=== PATIENT | female | born 1935 | race Caucasian/White ===

== ENCOUNTER 2018-03-07 04:58 | Inpatient (IN) ==
[2018-03-03 13:08] LABS: Appearance,Urine HAZY; Bacteria,Urine 0 /hpf (0); Bilirubin,Urine NEG (NEG); Color,Urine YELLOW; Glucose,Urine (UA) 50 mg/dL (NEG); Leukocyte Esterase,Urine 250 /uL (NEG); Mucus,Urine FEW /hpf (0); Protein,Urine NEG (NEG); Specific Gravity,Urine 1.026 (1.000-1.035); Urine Blood NEG mg/dL (<0.03); Urine Hyaline Cast 4 /lpf (0-2); Urine RBC 5 /hpf (0-1); Urine Squamous Epithelial Cell 2 /hpf (0-4); Urine WBC 12 /hpf (0-4); Urobilinogen,Urine NEG (NEG)
[2018-03-03 13:11] LABS: Basophils # (Auto) 0.1 K/mcL (0.0-0.3); Basophils % (Auto) 0.8 % (0.0-2.0); Eosinophils # (Auto) 0.3 K/mcL (0.0-0.7); Eosinophils % (Auto) 3.6 % (0.0-7.0); Granulocytes % (Auto) 59.9 % (38.0-78.0); Lymphocytes # (Auto) 2.1 K/mcL (1.5-4.8); Lymphocytes % (Auto) 27.7 % (15.5-49.0); Mean Cell Volume 94.3 fL (80.0-100.0); Mean Corpuscular HGB Conc 33.1 g/dL (31.0-36.0); Mean Corpuscular Hemoglobin 31.3 pg (26.0-34.0); Monocytes # (Auto) 0.6 K/mcL (0.1-0.9); Platelet Count 360 K/mcL (140-440); RBC 3.37 M/mcL (4.00-5.20); Red Cell Distribution Width 19.4 % (11.5-14.5)
[2018-03-03 13:34] LABS: ALT/SGPT 9 U/l (0-40); Albumin 4.6 gm/dL (3.2-5.2); Albumin/Globulin Ratio 1.9 (1.0-2.3); Alkaline Phosphatase 40 U/L (39-117); Blood Urea Nitrogen 26 mg/dl (8-23)
[2018-03-07] MEDS ORDERED: VANCOMYCIN 1,000 MG in 0.9 % SODIUM CHLORIDE 250 ML IV SCH (06:45)
[2018-03-07] MEDS ORDERED: CIPROFLOXACIN 400 MG/200 ML BAG IV ONE (07:00)
[2018-03-07] MEDS ORDERED: MIDAZOLAM 2 MG/2 ML VIAL IV ONE (07:35)
[2018-03-07] MEDS ORDERED: DEXAMETHASONE 10 MG/ML VIAL IV ONE (07:35)
[2018-03-07] MEDS ORDERED: ONDANSETRON 4 MG/2 ML VIAL IV ONE (07:35)
[2018-03-07] MEDS ORDERED: PHENYLEPHRINE 10 MG/ML VIAL IV ONE (07:35)
[2018-03-07] MEDS ORDERED: fentaNYL 250 MCG/5 ML VIAL IV ONE (07:35)
[2018-03-07] MEDS ORDERED: PROMETHAZINE 25 MG/ML VIAL IV ONE (07:35)
[2018-03-07] MEDS ORDERED: KETAMINE 100 MG/ML ML IV ONE (07:35)
[2018-03-07] MEDS ORDERED: SUCCINYLCHOLINE 20 MG/ML ML IV ONE (07:35)
[2018-03-07] MEDS ORDERED: LIDOCAINE HCL/PF 100 MG/5 ML SYRINGE IV ONE (07:35)
[2018-03-07] MEDS ORDERED: PROPOFOL 200 MG/20 ML VIAL IV ONE (07:35)
[2018-03-07] MEDS ORDERED: THROMBIN (BOVINE) 5,000 UNIT VIAL TOPICAL ONE (08:23)
[2018-03-07] MEDS ORDERED: ACETAMINOPHEN 1,000 MG/100 ML BOTTLE IV ONE (10:25)
[2018-03-07] MEDS ORDERED: KETOROLAC 15 MG/ML VIAL IV PRN (10:25)
[2018-03-07] MEDS ORDERED: HYDROmorphone 2 MG/ML VIAL IV PRN (10:25)
[2018-03-07] MEDS ORDERED: ONDANSETRON 4 MG/2 ML VIAL IV PRN (10:25)
[2018-03-07] MEDS ORDERED: IPRATROPIUM/ALBUTEROL 3 ML AMPUL.NEB NEB PRN (10:25)
[2018-03-07] MEDS ORDERED: fentaNYL 100 MCG/2 ML VIAL IV PRN (10:25)
[2018-03-07] MEDS ORDERED: METHOCARBAMOL 1,000 MG/10 ML VIAL IV PRN (10:25)
[2018-03-07] MEDS ORDERED: LACTATED RINGERS 1,000 ML IV SCH (10:30)
--- NOTE | 2018-03-07 10:30 | Brief Operative Note ---
Date of procedure: 03/07/18 Pre-op diagnosis: lumbar stenosis with instability Post-op diagnosis: same Procedure: XLIF with psif Grafts/Implants: Yes (nuvasive) Anesthesia: GETA Complications: none Surgeon: Jasper Donato Manager Laboratory: Cody Arnold Estimated blood loss (cc): 100 Specimens Removed/Pathology: none sent Condition: stable Disposition: PACU
[2018-03-07] MEDS ORDERED: BENZOCAINE/MENTHOL 1 LOZENGE PO PRN (10:31)
[2018-03-07] MEDS ORDERED: METHOCARBAMOL 750 MG TABLET PO PRN (10:40)
[2018-03-07] MEDS ORDERED: ONDANSETRON ODT 4 MG TABLET SL PRN (10:40)
[2018-03-07] MEDS: MEPERIDINE 25 MG/ML SYRINGE IV PRN ×2 (11:47→11:52)
[2018-03-07] MEDS: HYDROCODONE/APAP 7.5/325MG TABLET PO PRN ×2 (17:31→21:17)
[2018-03-07] MEDS: metFORMIN 500 MG TABLET PO SCH (17:33)
[2018-03-07] MEDS ORDERED: diphenhydrAMINE 25 MG CAPSULE PO PRN (17:59)
[2018-03-07] MEDS ORDERED: ZOLPIDEM 5 MG TABLET PO PRN (18:00)
[2018-03-07] MEDS: 0.9 % SODIUM CHLORIDE 1,000 ML IV SCH (18:31)
[2018-03-07] MEDS: DOCUSATE SODIUM 100 MG CAPSULE PO SCH (20:26)
[2018-03-07] MEDS: SENNOSIDES 1 TABLET PO SCH (20:26)
[2018-03-07] MEDS: ATORVASTATIN 20 MG TABLET PO SCH (20:26)
[2018-03-07] MEDS: VANCOMYCIN 1,000 MG in 0.9 % SODIUM CHLORIDE 250 ML IV SCH (20:26)
[2018-03-08] MEDS: HYDROCODONE/APAP 7.5/325MG TABLET PO PRN ×5 (01:11→21:29)
[2018-03-08 06:32] LABS: Blood Urea Nitrogen 18 mg/dl (8-23)
--- NOTE | 2018-03-08 07:47 | Orthopedic Progress Note ---
Subjective Patient information: Note initiated : 03/08/18 at 7:45 am Service Date, if different from initiated Date: [] Patient: Nakita Zuñiga 82 y/o F admitted on 03/07/18 for L3-4 Xlif with Percutaneous Screws. Chief Complaint: [] no issues pod 1 reports legs feel better Objective Vital signs: Vital Signs Temp Pulse Resp BP Pulse Ox 03/08/18 07:42 96.9 F L 73 12 93/55 96 03/08/18 04:00 98.0 F 76 12 90/48 97 03/07/18 23:46 98.1 F 88 12 116/68 90 03/07/18 19:30 97.9 F 94 H 16 117/50 92 03/07/18 15:45 16 125/54 98 03/07/18 14:45 97 H 16 120/53 95 03/07/18 14:15 96 H 16 136/45 96 03/07/18 13:15 93 H 16 133/55 95 03/07/18 13:00 89 16 128/84 100 03/07/18 12:45 88 16 141/55 91 03/07/18 12:30 94 H 16 139/69 91 03/07/18 12:15 94 H 16 145/57 99 03/07/18 12:05 98 03/07/18 12:00 95 H 16 143/65 98 03/07/18 11:53 89 12 140/69 99 03/07/18 11:39 97.3 F 88 12 140/63 99 03/07/18 11:25 90 13 118/58 99 03/07/18 11:08 91 H 17 140/58 96 03/07/18 10:55 98.7 F 93 H 13 129/64 100 Intake and Output 03/07/18 03/08/18 03/08/18 21:59 05:59 13:59 Intake Total 360 / 360 350 / 350 Output Total 275 / 275 340 / 340 Balance 85 / 85 Intake: Oral 360 / 360 350 / 350 Output: Drainage 25 / 40 / 40 Medial Back 40 / 40 Void Amount 250 / 250 300 / 300 Other: Weight 167 lb Intake & Output: Intake & Output 03/07/18 03/08/18 03/08/18 21:59 05:59 13:59 Intake Total 360 / 360 350 / 350 Output Total 275 / 275 340 / 340 Balance 85 / 85 10 / 10 Weight 167 lb Intake: Oral 360 / 360 350 / 350 Output: Drainage 25 / 25 40 / 40 Medial Back 25 / 40 / 40 Void Amount 250 / 250 300 / 300 Dressing: Yes clean, Yes dry, Yes intact Neurological exam IM: Yes neurovascular intact Extremities exam IM: Yes neurovascular intact - Labs CBC & BMP: 03/08/18 04:07 03/08/18 04:07 Labs: Orthopedic Labs 03/03/18 10:35 PT 13.2 INR 1.0 03/08/18 03/03/18 04:07 10:35 Hgb 7.6 L 10.6 L Hct 23.1 L 31.8 L Assessment and Plan (1) Spinal stenosis pod 1 no issues low hgb monitor for symptoms dc amaya Status: Acute
[2018-03-08] MEDS: MULTIVIT,THER IRON,CA,FA & MIN 1 TABLET PO SCH (08:37)
[2018-03-08] MEDS: VITAMIN D3 1,000 UNIT TABLET PO SCH (08:37)
[2018-03-08] MEDS: VIT A,C & E/LUTEIN/MINERALS TABLET PO SCH (08:37)
[2018-03-08] MEDS: VANCOMYCIN 1,000 MG in 0.9 % SODIUM CHLORIDE 250 ML IV SCH (08:37)
[2018-03-08] MEDS: metFORMIN 500 MG TABLET PO SCH ×2 (08:37→17:09)
[2018-03-08] MEDS: VITAMIN B COMPLEX 1 CAPSULE PO SCH (08:37)
[2018-03-08] MEDS: DOCUSATE SODIUM 100 MG CAPSULE PO SCH ×2 (08:37→21:00)
[2018-03-08] MEDS: FERROUS SULFATE 325 MG TABLET PO SCH (08:37)
[2018-03-08] MEDS: LOSARTAN 50 MG TABLET PO SCH (12:30)
[2018-03-08] MEDS: 0.9 % SODIUM CHLORIDE 1,000 ML IV SCH (15:42)
[2018-03-08] MEDS ORDERED: MAGNESIUM HYDROXIDE 30 ML ORAL.SUSP PO PRN (17:51)
[2018-03-08] MEDS ORDERED: BISACODYL 10 MG SUPP.RECT PR PRN (17:51)
[2018-03-08] MEDS ORDERED: FLEETS ADULT ENEMA PR PRN (17:51)
[2018-03-08] MEDS: ATORVASTATIN 20 MG TABLET PO SCH (21:00)
[2018-03-08] MEDS: SENNOSIDES 1 TABLET PO SCH (21:00)
[2018-03-09] MEDS: metFORMIN 500 MG TABLET PO SCH (08:12)
[2018-03-09] MEDS: VITAMIN B COMPLEX 1 CAPSULE PO SCH (08:12)
[2018-03-09] MEDS: VITAMIN D3 1,000 UNIT TABLET PO SCH (08:12)
[2018-03-09] MEDS: LOSARTAN 50 MG TABLET PO SCH (08:12)
[2018-03-09] MEDS: HYDROCODONE/APAP 7.5/325MG TABLET PO PRN (08:12)
[2018-03-09] MEDS: FERROUS SULFATE 325 MG TABLET PO SCH (08:12)
[2018-03-09] MEDS: MULTIVIT,THER IRON,CA,FA & MIN 1 TABLET PO SCH (08:12)
[2018-03-09] MEDS: DOCUSATE SODIUM 100 MG CAPSULE PO SCH (08:12)
[2018-03-09] MEDS: VIT A,C & E/LUTEIN/MINERALS TABLET PO SCH (08:12)
--- NOTE | 2018-03-09 09:10 | Orthopedic Progress Note ---
Subjective Patient information: Note initiated : 03/09/18 at 9:08 am Service Date, if different from initiated Date: [] Patient: Nakita Zuñiga 82 y/o F admitted on 03/07/18 for L3-4 Xlif with Percutaneous Screws. Chief Complaint: [S/P L3-4 XLIF with posterior instrumentation] Patient is doing well and ambulates well with a walker. No complaints other than post-operative back pain. Denies any headaches, SOA, chest pain, or lower extremity weakness/paresthesias. Objective Vital signs: Vital Signs Temp Pulse Resp BP Pulse Ox 03/09/18 07:50 98.4 F 100 H 18 141/63 96 03/09/18 07:13 100 H 18 96 03/09/18 07:08 100 H 03/09/18 03:28 98.4 F 94 H 18 108/50 96 03/08/18 22:35 98.8 F 107 H 18 116/64 91 03/08/18 19:12 98.4 F 97 H 18 100/40 95 03/08/18 15:45 98.7 F 16 97/53 92 03/08/18 14:05 98.6 F 91 H 12 124/58 94 Intake and Output 03/08/18 03/09/18 03/09/18 21:59 05:59 13:59 Intake Total 740 / 740 275 / 275 200 / 200 Output Total 800 / 800 1200 / 1200 400 / 400 Balance -60 / -60 -925 / -925 -200 / -200 Intake: Oral 740 / 740 275 / 275 200 / 200 Output: Void Amount 800 / 800 1200 / 1200 400 / 400 Other: Meal Dinner Breakfast Percent of Meal Consumed 100% 75% Feeding Ability Assist with Tray Set Up Independent # Voids 1 1 Weight 168 lb 8 oz Intake & Output: Intake & Output 03/08/18 03/09/18 03/09/18 21:59 05:59 13:59 Intake Total 740 / 740 275 / 275 200 / 200 Output Total 800 / 800 1200 / 1200 400 / 400 Balance -60 / -60 -925 / -925 -200 / -200 Weight 168 lb 8 oz Intake: Oral 740 / 740 275 / 275 200 / 200 Output: Void Amount 800 / 800 1200 / 1200 400 / 400 Other: Meal Dinner Breakfast Percent of Meal Consumed 100% 75% Feeding Ability Assist with Tray Set Up Independent # Voids 1 1 Incision: Yes healing, Yes clean and dry Incision clean and dry: Yes Dressing: Yes clean, Yes dry, Yes intact Weight bearing status: full Neurological exam IM: Yes oriented X3, Yes motor sensory intact, Yes neurovascular intact Extremities exam IM: Yes normal inspection, Yes neurovascular intact - Labs CBC & BMP: 03/09/18 04:15 03/08/18 04:07 Labs: Orthopedic Labs 03/03/18 10:35 PT 13.2 INR 1.0 03/09/18 03/08/18 03/03/18 04:15 04:07 10:35 Hgb 7.7 L 7.6 L 10.6 L Hct 23.6 L 23.1 L 31.8 L Assessment and Plan (1) Spinal stenosis Discharge to home today. May ambulate with walker. Discharge instructions provided. Status: Acute
--- NOTE | 2018-03-09 09:13 | Discharge Summary ---
Providers - Providers Patient information: Note initiated : 03/09/18 at 9:11 am Service Date, if different from initiated Date: [] Patient: Nakita Zuñiga 82 y/o F admitted on 03/07/18 for L3-4 Xlif with Percutaneous Screws. Chief Complaint: [] Discharge date: 03/09/18 Hospitalization Hospital course: Post-operatively, the patient was returned to the sal where she was provided routine pain management and maintained on prophylactic abx. She ambulated daily with PT. At the time of discharge, she is doing well and tolerating all medications well. She is discharged to follow-up with me in approximately 2 weeks. She will call with any questions or concerns whatsoever. Discharge diagnosis: Spinal stenosis Reason for admission: The patient was admitted for operative treatment of lumbar stenosis Procedures: The patient was taken to the operating room on the date of admission for operative treatment of lumbar stenosis where she underwent a lumbar decompression and fusion. The procedure was tolerated well with no complications. Complications: None Exam - Exam Incision healing: Yes Incision draining: No Incision red: No Incision swollen: No Incision inflamed: No Clean and dry: Yes Weight bearing status: full Ortho Discharge - Spine - Patient Instructions Discharge Diet: Regular Diet Activity: ambulate with assistive device, weight bearing as tolerated Spine Protocol: Limit bending and stooping. No heavy lifting. Wear brace/collar at all times except when showering and sleeping. Dressing Care: May shower in 2 days Additional Dressing Instructions: May Shower 48 hours post-operative and replace with dry dressing after shower. Additional Instructions: Call and schedule appointment with Primary Care Physician for follow up of urinary tract infection. You need to have your urine rechecked. - Problem Maintenance (1) Spinal stenosis Status: Acute - Follow Up Plan Follow Up Appointments: Jasper Donato MD [Physician] - 03/22/18 10:00 am Disposition: Home, Self-Care Prognosis: Good Rehab Potential: Good - Orders For Discharge Prescriptions: Hydrocodone/APAP 7.5/325Mg [[place] 7.5-325Mg] 1 - 2 tab PO Q4HP PRN #60 tab PRN Reason: Pain Methocarbamol [Robaxin] 750 mg PO Q6HP PRN #30 tab PRN Reason: Muscle Spasm Nitrofurantoin Macrocrystal [Nitrofurantoin] 100 mg PO QIDP PRN #20 cap PRN Reason: UTI Pending Studies Resuscitation Status Full Code Diet Regular Diet Start WedMarch 07 Lunch Hydrocodone Bitart/Acetaminophen ([place] 7.5/325mg) 0 tab PO Q4HP PRN PRN Reason: PAIN LEVEL 3-6 Last Admin: 03/09/18 08:12 Dose: 1 tab Admin: 03/08/18 21:29 Dose: 1 tab Admin: 03/08/18 19:03 Dose: 1 tab Admin: 03/08/18 14:39 Dose: 1 tab Admin: 03/08/18 08:38 Dose: 1 tab Admin: 03/08/18 01:11 Dose: 2 tab Admin: 03/07/18 21:17 Dose: 2 tab Admin: 03/07/18 17:31 Dose: 1 tab Atorvastatin Calcium (Lipitor) 5 mg PO [facility] Last Admin: 03/08/18 21:00 Dose: 5 mg Admin: 03/07/18 20:26 Dose: 5 mg Diphenhydramine HCl (Benadryl) 25 - 50 mg PO HSP PRN PRN Reason: Insomnia Last Admin: 03/07/18 21:17 Dose: 25 mg Docusate Sodium (Colace) 100 mg PO BID [facility] Last Admin: 03/09/18 08:12 Dose: 100 mg Admin: 03/08/18 21:00 Dose: 100 mg Admin: 03/08/18 08:37 Dose: 100 mg Admin: 03/07/18 20:26 Dose: 100 mg Ferrous Sulfate (Ferrous Sulfate) 325 mg PO [facility] Last Admin: 03/09/18 08:12 Dose: 325 mg Admin: 03/08/18 08:37 Dose: 325 mg Iron Carb/Multivit/Mechanical Engineering Advisor/Folic Acid (Multivitamin W/Minerals) 1 tab PO DAILY [facility] Last Admin: 03/09/18 08:12 Dose: 1 tab Admin: 03/08/18 08:37 Dose: 1 tab Losartan Potassium (Cozaar) 100 mg PO DAILY [facility] Last Admin: 03/09/18 08:12 Dose: 100 mg Admin: 03/08/18 12:30 Dose: 100 mg Met[facility] ([facility]uc[facility]) [facility] Last Admin: 03/09/18 08:12 Dose: 500 mg Admin: 03/08/18 17:09 Dose: 500 mg Admin: 03/08/18 08:37 Dose: 500 mg Admin: 03/07/18 17:33 Dose: 500 mg Methocarbamol (Robaxin) 750 mg PO Q6HP PRN PRN Reason: Muscle Spasm Last Admin: 03/08/18 21:29 Dose: 750 mg Morphine Sulfate (Morphine) 0 mg IV Q1HP PRN PRN Reason: PAIN LEVEL > 6 Last Admin: 03/07/18 14:07 Dose: 4 mg Multivitamins/Minerals (Ocuvite) 1 tab PO DAILY [facility] Last Admin: 03/09/18 08:12 Dose: 1 tab Admin: 03/08/18 08:37 Dose: 1 tab Biotin 2,500 Mcg Cap 1 dose PO DAILY [facility] Last Admin: 03/09/18 08:14 Dose: Not Given Admin: 03/08/18 11:22 Dose: Not Given Senna (Senokot) 2 tab PO HS [facility] Last Admin: 03/08/18 21:00 Dose: 2 tab Admin: 03/07/18 20:26 Dose: 2 tab Vitamin B Complex (Vitamin B Complex) 1 cap PO DAILY [facility] Last Admin: 03/09/18 08:12 Dose: 1 cap Admin: 03/08/18 08:37 Dose: 1 cap Vitamin D (Vitamin D3) 1,000 unit PO DAILY [facility] Last Admin: 03/09/18 08:12 Dose: 1,000 unit Admin: 03/08/18 08:37 Dose: 1,000 unit Zolpidem Tartrate (Ambien) 5 mg PO HSP PRN PRN Reason: Insomnia Last Admin: 03/08/18 21:00 Dose: 5 mg Shift Summary 03/09/18 03:50 Shift Summary by Tricia Colon up w/SBA to BR and chair, ambulated sparks once tonight and tolerated well, pt able to place back brace herself, tolerating diet well, now receiving bowel meds but no results thus far, medicated with lortab 7.5mg 1 tab twice along with robaxin x1, pain rating consistently 4/10, receiving ambien per request instead of benadryl d/t "it didn't work last night", pt was then placed on oxygen 2L NC while sleeping sats mid 80's on RA, possible d/c home today with , pleasant and cooperative with cares, dsg to medial back CDI Initialized on 03/09/18 03:50 - END OF NOTE
--- NOTE | 2018-03-17 19:07 | XRay Report ---
CLINICAL INFORMATION: Intraoperative fluoroscopy for interbody fusion TECHNIQUE: 0.9 minutes fluoroscopy utilized. IMPRESSION: Intraoperative fluoroscopy for interbody fusion procedure Interpreted and Authenticated by: Edmundo Chirinos 03/17/18
--- NOTE | 2018-04-05 09:22 | Operative Note ---
DATE OF OPERATION: 03/07/2018 PREOPERATIVE DIAGNOSIS: Lumbar stenosis with instability L3-4. POSTOPERATIVE DIAGNOSIS: Lumbar stenosis with instability L3-4. OPERATION PROPOSED: 1. Anterior interbody fusion via lateral retroperitoneal approach L3-4 with application of prosthetic device interbody space L3-4 2. Posterior nonsegmental instrumentation using a pedicle screw construct L3-4. 3. Posterior/posterolateral fusion L3-4 and a decompression lateral recess L3-4. OPERATION PERFORMED: 1. Anterior interbody fusion via lateral retroperitoneal approach L3-4 with application of prosthetic device interbody space L3-4 2. Posterior nonsegmental instrumentation using a pedicle screw construct L3-4. 3. Posterior/posterolateral fusion L3-L4 and a decompression lateral recess L3-4. OPERATING SURGEON: Jasper Donato M.D. THREAD PULLING MACHINE ATTENDANT: Cody Arnold PA-C. INDICATIONS: This is a lady who has had intractable radicular pain and claudication pain. She has stenosis with instability L3-4. OPERATION IN DETAIL: Informed consent was obtained. She was taken to the operating room where she was provided with appropriate anesthetic and prophylactic antibiotics. She was carefully positioned. An incision was made over her flank on the left. I advanced into the retroperitoneal space and docked at the L3-4 disc space. I had advanced through the psoas musculature using an EMG dilating trocar. I placed a self-retaining retractor. The annulus was incised and I extensively curetted the disc space, debriding all disc material. I debrided down to subchondral bone. I then filled an XLIF cage with morcellized bone graft. This was impacted into the site prepared for it. Wounds were irrigated extensively. I closed with an 0 Vicryl in interrupted fashion, 2-0 Vicryl inverted deep dermal, and running subcuticular. The patient was then turned to the prone position. I placed percutaneous screws L3, L4, both on the right and on the left. The right side was done with a Viviana muscle-splitting approach, and I dissected down to expose the facet joint which was causing significant lateral recess stenosis. This was debrided and decompressing the lateral recess. A decorticated this facet joint and packed morcellized graft into and against the decorticated posterolateral aspect of the spine to allow for fusion. I compressed across the interbody graft. I tightened and torqued the tang into the top-loading pedicle screws. I closed with an 0 Vicryl in interrupted fashion, 2-0 Vicryl inverted deep dermal, and running subcuticular. The procedure was tolerated well. No complications. Estimated blood loss was 50 mL. GDD:[email or web address] Job ID: [id number] Doc ID: [id number] Jasper Donato MD
== END 2018-03-09 12:30 | disposition home or self-care (01) | DRG 455 ==
LOC: ICU 04:58
PROVIDERS: ADMIT Orthopaedic Surgery Orthopaedic Surgery of the Spine; ATTEND Orthopaedic Surgery Orthopaedic Surgery of the Spine